=== PATIENT | male | born 1970 | race Caucasian/White ===

== ENCOUNTER 2020-07-21 21:00 | Emergency (ER) | payer BC ==
[~2020-07-21] VITALS: Ht 170.2 cm; Wt 90.7 kg
[~2020-07-21 21:00] MED LIST: PHEN100C70 PO
[2020-07-21] MEDS ORDERED: MORPHINE SULFATE 4 MG/ML SYR/VIAL IV ONE (21:15)
[2020-07-21] MEDS ORDERED: ONDANSETRON HCL 4 MG/2 ML VIAL IV ONE (21:15)
[2020-07-21] MEDS ORDERED: SODIUM CHLORIDE 0.9% 1,000 ML IV ONE (21:15)
[2020-07-21 21:32] LABS: Basophils # (auto) 0.1 10 ^3/uL (0-0.2); Basophils % (auto) 0.9 % (0.0-2.0); Eosinophils # (auto) 0.4 10 ^3/uL (0-0.8); Eosinophils % (auto) 5.4 % (0.0-7.0); Hemoglobin 16.8 g/dL (13.5-17.5); Lymphocytes # (auto) 1.7 10 ^3/uL (0.4-5.4); Lymphocytes % (auto) 24.8 % (10.0-50.0); Mean Corpuscular Hemoglobin 31.8 pg (28.0-32.0); Mean Corpuscular Hgb Conc. 33.7 g/dL (32.0-36.0); Mean Corpuscular Volume 94.3 fL (80.0-100.0); Monocytes # (auto) 0.5 10 ^3/uL (0-1.3); Monocytes % (auto) 6.5 % (0.0-12.0); Neutrophils # (auto) 4.4 10 ^3/uL (1.6-8.6); Neutrophils % (auto) 62.4 % (37.0-80.0); Nucleated Red Blood Cells % 0.1 %; Platelet Count (auto) 303 10^3/uL (140-450); Red Cell Distribution Width 13.8 % (11.8-14.3)
[2020-07-21 21:49] LABS: INR 1.02 (0.9-1.15); Partial Thromboplastin Time 31.3 sec (23.0-31.2)
[2020-07-21 21:50] LABS: Albumin 3.7 g/dL (3.4-5.0); Amylase 74 U/L (25-115); Anion Gap 6 (5-15); Blood Urea Nitrogen 16 mg/dL (7-18); Calcium 8.9 mg/dL (8.5-10.1); Carbon Dioxide 28 mmol/L (21-32); Chloride 103 mmol/L (98-107); Glucose 188 mg/dL (74-106); Lipase 230 U/L (73-393); Magnesium 2.4 mg/dL (1.6-2.6); Potassium 3.7 mmol/L (3.5-5.1); Sodium 137 mmol/L (136-145)
[2020-07-21 21:56] LABS: Alanine Aminotransferase 29 U/L (16-61); Alkaline Phosphatase 76 U/L (45-117); Aspartate Aminotransferase 21 U/L (15-37); Bilirubin, Total 0.2 mg/dL (0.2-1.0); GFR African American 93 mL/min; GFR Non-African American 77 mL/min
[2020-07-21] MEDS ORDERED: HYDROmorphone HCL 2 MG/ML VL IV ONE (22:30)
[2020-07-21 23:11] VITALS: BP 176/107
== END 2020-07-22 01:07 | disposition home or self-care (01) ==
LOC: EDBD 21:00 → ER 21:03
DX: K52.9 Noninfective gastroenteritis and colitis, unspecified (principal); Z87.442 Personal history of urinary calculi; Z79.899 Other long term (current) drug therapy
CPT/HCPCS: 36415; 74176; 80053; 82150; 83690; 83735; 83880; 84484; 85025; 85610; 85730; 93005; 96361; 96374; 96375; 99285; J1170; J2270; J2405; J7030

== ENCOUNTER 2023-03-01 20:15 | Inpatient (IN) | payer BC ==
[~2023-03-01] VITALS: Ht 172.7 cm; Wt 120.8 kg
[~2023-03-01 20:15] MED LIST changes: +PHEN100C PO; -PHEN100C70 PO
[2023-03-01] MEDS ORDERED: IPRATROPIUM BROM 0.5 MG/2.5ML INH SOL ONE (20:21)
[2023-03-01] MEDS ORDERED: ALBUTEROL SULF 2.5 MG/0.5ML(0.5%) NEB SOLN ONE (20:21)
[2023-03-01] MEDS ORDERED: LORazepam 2MG/ML-1ML VIAL IV ONE (20:30)
[2023-03-01] MEDS ORDERED: MAGNESIUM SULFATE 1GM/100ML 100 ML IV ONE (20:30)
[2023-03-01] MEDS ORDERED: DexAMETHasone SOD PHOS 10MG/1ML VIAL INJ IV ONE (20:30)
[2023-03-01] MEDS ORDERED: ONDANSETRON HCL 4 MG/2 ML VIAL ONE (20:37)
[2023-03-01] MEDS ORDERED: ONDANSETRON HCL 4 MG/2 ML VIAL IV ONE (20:45)
[2023-03-01 21:11] LABS: Basophils # (auto) 0 10 ^3/uL (0-0.2); Basophils % (auto) 0.4 % (0.0-2.0); Eosinophils # (auto) 0.5 10 ^3/uL (0-0.8); Eosinophils % (auto) 4.7 % (0.0-7.0); Hematocrit 48.6 % (41.0-53.0); Hemoglobin 16.3 g/dL (13.5-17.5); Mean Corpuscular Hemoglobin 31.8 pg (28.0-32.0); Mean Corpuscular Hgb Conc. 33.6 g/dL (32.0-36.0); Mean Corpuscular Volume 94.7 fL (80.0-100.0); Monocytes # (auto) 0.4 10 ^3/uL (0-1.3); Monocytes % (auto) 3.5 % (0.0-12.0); Neutrophils # (auto) 7.5 10 ^3/uL (1.6-8.6); Neutrophils % (auto) 72.4 % (37.0-80.0); Nucleated Red Blood Cells % 0.1 %; Red Blood Cells 5.13 10^6/uL (4.5-5.90); Red Cell Distribution Width 14.5 % (11.8-14.3); White Blood Cell 10.4 10^3/uL (4.4-10.8)
[2023-03-01 21:35] LABS: Albumin 3.3 g/dL (3.4-5.0); Potassium 3.6 mmol/L (3.5-5.1)
[2023-03-01 21:38] LABS: BUN/Creatinine Ratio 18.4 (10.0-20.0); Bilirubin, Total 0.2 mg/dL (0.2-1.0); Total Protein 6.4 g/dL (6.4-8.2)
[2023-03-01] MEDS ORDERED: PANTOPRAZOLE 40 MG/10 ML VIAL INJ IV ONE (21:45)
[2023-03-01] MEDS ORDERED: ALBUMIN 25% 100 ML IV ONE (22:15)
[2023-03-01] MEDS ORDERED: AZITHROMYCIN 500MG/ 250ML 250 ML IV ONE (22:15)
[2023-03-01] MEDS ORDERED: LACTATED RINGER'S 1,000 ML IV ONE (22:15)
[2023-03-01] MEDS ORDERED: IOHEXOL 350 MG/ML 100ML IJ ONE (22:51)
[2023-03-02 00:59] LABS: Urine Bacteria NONE SEEN /hpf (None Seen); Urine Blood Negative /uL (Negative); Urine Mucus FEW (None Seen); Urine WBC 4 /hpf (0 - 3)
[2023-03-02 01:00] LABS: Urine Specific Gravity > 1.050 (1.001-1.035)
[2023-03-02] MEDS ORDERED: TEMAZEPAM 15 MG CAP PO PRN (01:00)
[2023-03-02] MEDS ORDERED: MORPHINE SULFATE INJ 2 MG/ml SYRG IV PRN (01:00)
[2023-03-02] MEDS ORDERED: ONDANSETRON HCL 4 MG/2 ML VIAL IV PRN (01:00)
[2023-03-02] MEDS ORDERED: ACETAMINOPHEN 325 MG TAB PO PRN (01:00)
[2023-03-02] MEDS ORDERED: NITROGLYCERIN 0.4 MG SL TAB SL PRN (01:00)
[2023-03-02 01:38] VITALS: BP 84/60
[2023-03-02] MEDS: IPRATROPIUM BROM 0.5 MG/2.5ML INH SOL NEB SCH ×3 (06:21→18:26)
[2023-03-02] MEDS: ALBUTEROL SULF 2.5 MG/0.5ML(0.5%) NEB SOLN NEB SCH ×3 (06:21→18:26)
[2023-03-02] MEDS ORDERED: PHENYTOIN SODIUM 100 MG CAP PO SCH (10:00)
[2023-03-02] MEDS: ASPirin 81 mg TAB PO SCH (10:16)
[2023-03-02] MEDS: PANTOPRAZOLE 40 MG TAB PO SCH (10:16)
[2023-03-02] MEDS: LISINOPRIL 10 MG TAB PO SCH (10:17)
[2023-03-02] MEDS: ENOXAPARIN SOD 40 MG/0.4 ML SYRINGE SC SCH (10:18)
[2023-03-02] MEDS: CALCIUM CARB 500 MG CHEW TAB PO PRN ×2 (16:32→22:40)
[2023-03-02] MEDS ORDERED: CALCIUM CARB 500 MG CHEW TAB PO ONE (18:00)
[2023-03-02 22:33] VITALS: BP 122/82
[2023-03-02] MEDS: PHENYTOIN SODIUM 100 MG CAP PO SCH (22:35)
[2023-03-02 22:53] VITALS: BP 122/82
[2023-03-03] VITALS (7 sets, daily range): BP systolic 119–145; BP diastolic 79–90
[2023-03-03 05:35] LABS: Basophils # (auto) 0.1 10 ^3/uL (0-0.2); Basophils % (auto) 0.8 % (0.0-2.0); Eosinophils # (auto) 0.7 10 ^3/uL (0-0.8); Hematocrit 42.3 % (41.0-53.0); Hemoglobin 14.6 g/dL (13.5-17.5); Lymphocytes # (auto) 2.4 10 ^3/uL (0.4-5.4); Lymphocytes % (auto) 35.2 % (10.0-50.0); Mean Corpuscular Hemoglobin 32.5 pg (28.0-32.0); Mean Corpuscular Hgb Conc. 34.6 g/dL (32.0-36.0); Mean Corpuscular Volume 93.7 fL (80.0-100.0); Monocytes # (auto) 0.5 10 ^3/uL (0-1.3); Monocytes % (auto) 7.7 % (0.0-12.0); Neutrophils % (auto) 45.3 % (37.0-80.0); Nucleated Red Blood Cells % 0.2 %; Red Blood Cells 4.51 10^6/uL (4.5-5.90); Red Cell Distribution Width 14.4 % (11.8-14.3); White Blood Cell 6.7 10^3/uL (4.4-10.8)
[2023-03-03 05:52] LABS: Potassium 4.6 mmol/L (3.5-5.1)
[2023-03-03] MEDS ORDERED: PNEUMOCOCCAL VACC POLYS 25 MCG/0.5 ML VIAL IM ONE (06:00)
[2023-03-03 06:07] LABS: Albumin 3.4 g/dL (3.4-5.0); BUN/Creatinine Ratio 17.3 (10.0-20.0); Bilirubin, Total 0.4 mg/dL (0.2-1.0); Calcium 8.4 mg/dL (8.5-10.1); Total Protein 5.6 g/dL (6.4-8.2)
[2023-03-03] MEDS: IPRATROPIUM BROM 0.5 MG/2.5ML INH SOL NEB SCH ×3 (06:41→18:52)
[2023-03-03] MEDS: ALBUTEROL SULF 2.5 MG/0.5ML(0.5%) NEB SOLN NEB SCH ×3 (06:41→18:52)
[2023-03-03] MEDS: ENOXAPARIN SOD 40 MG/0.4 ML SYRINGE SC SCH (09:59)
[2023-03-03] MEDS: PHENYTOIN SODIUM 100 MG CAP PO SCH ×2 (10:00→21:31)
[2023-03-03] MEDS: ASPirin 81 mg TAB PO SCH (10:00)
[2023-03-03] MEDS: LISINOPRIL 10 MG TAB PO SCH (10:00)
[2023-03-03] MEDS: PANTOPRAZOLE 40 MG TAB PO SCH (10:00)
[2023-03-03] MEDS: CALCIUM CARB 500 MG CHEW TAB PO PRN ×2 (10:05→17:58)
[2023-03-03] MEDS: cefTRIAXone 1GM/50ML D5W 50 ML IV SCH (14:32)
[2023-03-03] MEDS: AZITHROMYCIN 500MG/ 250ML 250 ML IV SCH (14:32)
[2023-03-04] MEDS: CALCIUM CARB 500 MG CHEW TAB PO PRN ×2 (02:07→15:54)
[2023-03-04 05:00] VITALS: BP 133/85
[2023-03-04] MEDS: IPRATROPIUM BROM 0.5 MG/2.5ML INH SOL NEB SCH ×2 (06:08→11:57)
[2023-03-04] MEDS: ALBUTEROL SULF 2.5 MG/0.5ML(0.5%) NEB SOLN NEB SCH ×2 (06:08→11:57)
[2023-03-04 08:00] VITALS: BP 144/79
[2023-03-04] MEDS: cefTRIAXone 1GM/50ML D5W 50 ML IV SCH (08:44)
[2023-03-04 09:11] VITALS: BP_SYST 122; BP_SYST 150; BP_DIAS 79; BP_DIAS 85
[2023-03-04] MEDS ORDERED: predniSONE 20 MG TAB PO SCH (10:00)
[2023-03-04] MEDS: AZITHROMYCIN 500MG/ 250ML 250 ML IV SCH (10:43)
[2023-03-04] MEDS: PANTOPRAZOLE 40 MG TAB PO SCH (10:43)
[2023-03-04] MEDS: ASPirin 81 mg TAB PO SCH (10:44)
[2023-03-04] MEDS: PHENYTOIN SODIUM 100 MG CAP PO SCH (10:45)
[2023-03-04] MEDS: LISINOPRIL 10 MG TAB PO SCH (10:47)
[2023-03-04] MEDS: ENOXAPARIN SOD 40 MG/0.4 ML SYRINGE SC SCH (10:48)
[2023-03-04 12:58] VITALS: BP 121/94
[2023-03-04] MEDS ORDERED: AZIT250T8 PO (15:13)
[2023-03-04] MEDS ORDERED: LISI-716 PO (15:13)
[2023-03-04] MEDS ORDERED: PRED20TA2 PO (15:17)
[2023-03-04] MEDS ORDERED: ALBU108A5 IN (15:17)
[2023-03-04 16:36] VITALS: BP 130/96
[2023-03-04 16:42] VITALS: BP 150/85
== END 2023-03-04 18:05 | disposition home or self-care (01) | DRG 189 ==
LOC: EDBD 20:15 → ER 20:17 → TELE 03-02 01:00 → TELE-WESTW 03-02 22:02
PROVIDERS: ADMIT Nurse Practitioner; ATTEND Internal Medicine
PROC: 5A09357 Assistance with Respiratory Ventilation, Less than 24 Consecutive Hours, Continuous Positive Airway Pressure (ICD-10-PCS; principal; 2023-03-01)
DX: J96.21 Acute and chronic respiratory failure with hypoxia (principal); J44.1 Chronic obstructive pulmonary disease with (acute) exacerbation; J45.901 Unspecified asthma with (acute) exacerbation; Z20.822 Contact with and (suspected) exposure to COVID-19; E88.09 Other disorders of plasma-protein metabolism, not elsewhere classified; K80.20 Calculus of gallbladder without cholecystitis without obstruction; I12.9 Hypertensive chronic kidney disease with stage 1 through stage 4 chronic kidney disease, or unspecified chronic kidney disease; N18.9 Chronic kidney disease, unspecified; Z87.442 Personal history of urinary calculi
CPT/HCPCS: 36415; 71045; 71260; 74177; 80053; 80185; 81001; 83690; 83880; 84484; 85025; 87426; 87804; 93005; 94640; 94644; 94660; 96361; 96365; 96366; 96368; 96375; 99291; C9113; G0378; J0696; J1100; J2405; P9047

== ENCOUNTER 2023-05-06 09:19 | Emergency (ER) | payer BC ==
[~2023-05-06] VITALS: Ht 170.2 cm; Wt 90.9 kg
[~2023-05-06 09:19] MED LIST changes: +ALBU108A5 IN; +AZIT-81 PO; +LISI10TA34 PO; +PRED20TA2 PO
[2023-05-06 09:50] VITALS: PULSE 76; RESP 14; O2SAT 94
[2023-05-06] MEDS ORDERED: LORazepam 2MG/ML-1ML VIAL IV ONE (10:30)
[2023-05-06 10:52] LABS: Albumin 3.3 g/dL (3.4-5.0); Basophils # (auto) 0.1 10 ^3/uL (0-0.2); Basophils % (auto) 0.9 % (0.0-2.0); Calcium 8.5 mg/dL (8.5-10.1); Eosinophils # (auto) 0.4 10 ^3/uL (0-0.8); Eosinophils % (auto) 5.8 % (0.0-7.0); Hematocrit 47.5 % (41.0-53.0); Hemoglobin 15.8 g/dL (13.5-17.5); Lymphocytes % (auto) 15.2 % (10.0-50.0); Mean Corpuscular Hemoglobin 31.1 pg (28.0-32.0); Mean Corpuscular Hgb Conc. 33.3 g/dL (32.0-36.0); Mean Corpuscular Volume 93.3 fL (80.0-100.0); Monocytes # (auto) 0.4 10 ^3/uL (0-1.3); Monocytes % (auto) 6.6 % (0.0-12.0); Neutrophils # (auto) 4.8 10 ^3/uL (1.6-8.6); Neutrophils % (auto) 71.5 % (37.0-80.0); Nucleated Red Blood Cells % 0.1 %; Potassium 4.5 mmol/L (3.5-5.1); Red Blood Cells 5.09 10^6/uL (4.5-5.90); Red Cell Distribution Width 15.2 % (11.8-14.3); White Blood Cell 6.8 10^3/uL (4.4-10.8)
[2023-05-06 10:56] LABS: BUN/Creatinine Ratio 17.3 (10.0-20.0); Bilirubin, Total 0.3 mg/dL (0.2-1.0); Total Protein 7.1 g/dL (6.4-8.2)
[2023-05-06] MEDS ORDERED: PHENYTOIN IV DILANTIN 1,000 MG in SODIUM CHL 0.9% 250 ML IV ONE (13:00)
[2023-05-06 15:05] VITALS: BP 130/79; PULSE 80; RESP 18; O2SAT 95
== END 2023-05-06 15:49 | disposition home or self-care (01) ==
LOC: EDBD 09:19 → ER 09:19
DX: G40.909 Epilepsy, unspecified, not intractable, without status epilepticus (principal); E44.1 Mild protein-calorie malnutrition; J45.909 Unspecified asthma, uncomplicated; I10 Essential (primary) hypertension; Z87.442 Personal history of urinary calculi; Z98.890 Other specified postprocedural states
CPT/HCPCS: 36415; 80053; 80185; 85025; 93005; 96365; 96366; 96375; 99285; J1165; J2060; J7050